=== PATIENT | male | born 1945 | race Caucasian/White ===

== ENCOUNTER 2016-07-21 14:48 | Emergency (ER) | payer MEDICARE, OTHER ==
[2016-07-21 15:02] VITALS: TEMP 97.2
--- NOTE | 2016-07-21 15:38 | ED.PDOC ---
History of Present Illness - General Chief Complaint: GI Problem Stated Complaint: n/v x3 days Time Seen by Provider: 07/21/16 15:31 Source: patient, RN notes reviewed, Vital Signs reviewed Exam Limitations: no limitations - History of Present Illness Initial Comments: Mr. Lopez Cruz 71 y/o male stated that he had an episode of nausea/ vomiting 2 weeks ago got better and 4 days ago had same episode with diarrhea for 2 days and better but his nausea vomiting persisted unable to take even fluids and been feeling weak.Has history of CAD/HTN. Timing/Duration: constant, intermittent, other - 4 days ago Severity: moderate Improving Factors: nothing Worsening Factors: eating Associated Symptoms: malaise Allergies/Adverse Reactions: Allergies NO KNOWN ALLERGY Allergy (Verified 07/21/16 15:01) Home Medications: Ambulatory Orders Aspirin [Baby Aspirin] 81 mg PO DAILY 09/17/14 Budesonide-Formoterol Fumarate [Symbicort 160-4.5 Mcg/Act] 1 puff INH BID Lisinopril 10 mg PO BID 09/17/14 Metoprolol Succinate [Toprol Xl] 25 mg PO BID 09/17/14 Omeprazole 20 mg PO BID 09/17/14 Atorvastatin Calcium [Lipitor] 20 mg PO DAILY 08/13/15 Isosorbide Mononitrate [Imdur] 30 mg PO DAILY 08/13/15 Meclizine HCl [Antivert] 25.5 mg PO TID PRN #15 tab 08/13/15 Meloxicam [Mobic] 7.5 mg PO DAILY #10 tab 08/13/15 Ondansetron Odt [Zofran ODT] 8 mg PO TID PRN #10 tab 07/21/16 Review of Systems - Review of Systems Constitutional: States: no symptoms reported EENTM: States: no symptoms reported Respiratory: States: no symptoms reported Cardiology: States: no symptoms reported Gastrointestinal/Abdominal: States: see HPI Genitourinary: States: no symptoms reported Musculoskeletal: States: no symptoms reported Skin: States: no symptoms reported Neurological: States: no symptoms reported Endocrine: States: no symptoms reported Hematologic/Lymphatic: States: no symptoms reported Past Medical History (General) - Patient Medical History Hx Stroke: No Hx of COPD: Yes Hx Cardiac Disorders: Yes Hx Congestive Heart Failure: No Hx Hypertension: Yes Hx Diabetes: No Hx Gastroesophageal Reflux: Yes Surgical History: coronary bypass surgery, other - hernia repair - Vaccination History Hx Tetanus, Diphtheria Vaccination: Yes Hx Influenza Vaccination: Yes - 2016 Hx Pneumococcal Vaccination: Yes - 2016 - Social History Hx Tobacco Use: Yes Hx Alcohol Use: No Hx Substance Use: No Hx Substance Use Treatment: No Hx Depression: No - Activities of Daily Living Patient Lives Alone: Yes - family Hospice Agency (if applicable):: None Grooming Ability: Independent Eating (Feeding) Ability: Independent Toileting Ability: Independent - Female History Patient is a Female of Child Bearing Age (10 -59 yrs old): No Patient : No Family Medical History - Family History Mother Family History: Unknown Living Status: Hx Family Asthma: No Hx Family Congestive Heart Failure: No Hx Family Hypertension: Yes - mom Hx Family Stroke: Yes - mom Hx Family Cancer: No Physical Exam - Physical Exam General Appearance: Alert, No apparent distress Eye Exam: bilateral normal Ears, Nose, Throat: hearing grossly normal, normal ENT inspection, normal pharynx Neck: non-tender, full range of motion, supple, normal inspection Respiratory: chest non-tender, lungs clear, normal breath sounds, no respiratory distress Cardiovascular/Chest: normal peripheral pulses, regular rate, rhythm, no edema, no gallop, no JVD, no murmur Peripheral Pulses: radial,right: 2+, radial,left: 2+ Gastrointestinal/Abdominal: normal bowel sounds, non tender, soft, no organomegaly, no pulsatile mass Back Exam: normal inspection, no CVA tenderness, no vertebral tenderness Extremity: normal range of motion, non-tender, normal inspection Neurologic: no motor/sensory deficits, alert, normal mood/affect, oriented x 3 Skin Exam: normal color, warm/dry Progress - Results/Orders Results/Orders: 07/21/16 15:47 URINALYSIS Stat Laboratory Results WBC 5.0 K/mm3 (4.8-10.8) 07/21/16 15:50 RBC 5.47 M/mm3 (4.70-6.10) 07/21/16 15:50 Hgb 15.3 gm/dL (14.0-18.0) 07/21/16 15:50 Hct 45.9 % (42.0-52.0) 07/21/16 15:50 MCV 84.0 fl (80.0-94.0) 07/21/16 15:50 MCH 28.1 pg (27.0-31.0) 07/21/16 15:50 MCHC 33.4 g/dL (33.0-37.0) 07/21/16 15:50 RDW 15.2 % (11.5-14.5) H 07/21/16 15:50 Plt Count 200 K/mm3 (130-400) 07/21/16 15:50 MPV 7.9 fl (7.40-10.4) 07/21/16 15:50 Absolute Neuts (auto) 2.90 K/uL (1.8-6.8) 07/21/16 15:50 Absolute Lymphs (auto) 1.00 K/uL (1.0-3.4) 07/21/16 15:50 Absolute Monos (auto) 1.00 K/uL (0.2-0.8) H 07/21/16 15:50 Absolute Eos (auto) 0.10 K/uL (0.0-0.4) 07/21/16 15:50 Absolute Basos (auto) 0.00 K/uL (0.0-0.1) 07/21/16 15:50 Neutrophils % 57.4 % (42.0-78.0) 07/21/16 15:50 Lymphocytes % 20.4 % (20.0-50.0) 07/21/16 15:50 Monocytes % 20.6 % (2.0-9.0) H 07/21/16 15:50 Eosinophils % 1.2 % (1.0-5.0) 07/21/16 15:50 Basophils % 0.4 % (0.0-2.0) 07/21/16 15:50 PT 13.4 SECONDS (9.4-12.5) H 07/21/16 15:50 INR 1.190 07/21/16 15:50 PTT (SP) 31.2 SECONDS (25.1-36.5) 07/21/16 15:50 Sodium 132 mmol/L (135-145) L 07/21/16 15:50 Potassium 3.8 mmol/L (3.6-5.0) 07/21/16 15:50 Chloride 100 mmol/L (101-111) L 07/21/16 15:50 Carbon Dioxide 23 mmol/L (21-31) 07/21/16 15:50 Anion Gap 12.8 (12-18) 07/21/16 15:50 BUN 19 mg/dL (7-18) H 07/21/16 15:50 Creatinine 1.09 mg/dL (0.6-1.3) 07/21/16 15:50 BUN/Creatinine Ratio 17.4 (10-20) 07/21/16 15:50 Random Glucose 101 mg/dL (70-105) 07/21/16 15:50 Serum Osmolality 266.9 mOsm/L (275-295) L 07/21/16 15:50 Calcium 9.0 mg/dL (8.4-10.2) 07/21/16 15:50 Magnesium 2.0 mg/dL (1.8-2.5) 07/21/16 15:50 Total Bilirubin 0.4 mg/dL (0.2-1.0) 07/21/16 15:50 Direct Bilirubin 0.1 mg/dL (0-0.2) 07/21/16 15:50 Indirect Bilirubin 0.3 mg/dL (0.2-0.8) 07/21/16 15:50 AST 44 IU/L (10-42) H 07/21/16 15:50 ALT 42 IU/L (10-60) 07/21/16 15:50 Alkaline Phosphatase 86 IU/L (42-121) 07/21/16 15:50 Creatine Kinase 122 IU/L (38-174) 07/21/16 15:50 CK-MB (CK-2) 1.9 ng/mL (0.0-4.4) 07/21/16 15:50 CK-MB (CK-2) % Not Reportable 07/21/16 15:50 Troponin I < 0.02 ng/mL (0.01-0.05) 07/21/16 15:50 Serum Total Protein 7.9 gm/dL (6.4-8.2) 07/21/16 15:50 Albumin 4.0 g/dl (3.2-5.5) 07/21/16 15:50 Globulin Cancelled 07/21/16 15:50 Albumin/Globulin Ratio Cancelled 07/21/16 15:50 Lipase 21 U/L (22-51) L 07/21/16 15:50 - EKG/XRAY/CT EKG: Sinus, nonspecific ST T wave Chg Comments: heart rate 90 Departure - Departure Clinical Impression: Nausea and vomiting in adult patient, Diarrhea Time of Disposition: 18:21 Disposition: Discharge to Home or Self Care Condition: Good Departure Forms: ED Discharge - Pt. Copy, Patient Portal Self Enrollment Instructions: Nausea and Vomiting-Adult Diet: bland diet Prescriptions: Ondansetron Odt [Zofran ODT] 8 mg PO TID PRN #10 tab PRN Reason: Nausea/Vomiting Home Medications: Ambulatory Orders Aspirin [Baby Aspirin] 81 mg PO DAILY 09/17/14 Budesonide-Formoterol Fumarate [Symbicort 160-4.5 Mcg/Act] 1 puff INH BID Lisinopril 10 mg PO BID 09/17/14 Metoprolol Succinate [Toprol Xl] 25 mg PO BID 09/17/14 Omeprazole 20 mg PO BID 09/17/14 Atorvastatin Calcium [Lipitor] 20 mg PO DAILY 08/13/15 Isosorbide Mononitrate [Imdur] 30 mg PO DAILY 08/13/15 Meclizine HCl [Antivert] 25.5 mg PO TID PRN #15 tab 08/13/15 Meloxicam [Mobic] 7.5 mg PO DAILY #10 tab 08/13/15 Ondansetron Odt [Zofran ODT] 8 mg PO TID PRN #10 tab 07/21/16 Additional Instructions: AVOID GREASY SPICY FOODS UNTIL BETTER; RETURN TO EMERGENCY ROOM NEEDED; FOLLOW UP WITH YOU MD IN AM IF NEEDED CALL FOR APPOINTMENT
[2016-07-21] MEDS ORDERED: SODIUM CHLORIDE 0.9% 1000ML 1,000 ML IVS ONE (15:47)
[2016-07-21] MEDS ORDERED: ONDANSETRON INJ 4 MG/2 ML VIAL IV ONE (15:48)
[2016-07-21 18:39] VITALS: BP 133/91; O2SAT 97
== END 2016-07-21 18:39 | disposition home or self-care (01) ==
LOC: ER 14:48
DX: R11.2 Nausea with vomiting, unspecified (principal); R19.7 Diarrhea, unspecified; I10 Essential (primary) hypertension; K21.9 Gastro-esophageal reflux disease without esophagitis; J44.9 Chronic obstructive pulmonary disease, unspecified; Z87.891 Personal history of nicotine dependence; Z95.1 Presence of aortocoronary bypass graft; Z79.82 Long term (current) use of aspirin; Z79.899 Other long term (current) drug therapy
CPT/HCPCS: 36415; 80048; 80076; 82550; 82553; 83690; 84484; 85025; 85610; 85730; 93005; J2405; J7030

== ENCOUNTER 2016-08-25 21:13 | Emergency (ER) | payer MEDICARE, OTHER ==
[2016-08-25 22:51] VITALS: O2SAT 94
--- NOTE | 2016-08-25 22:53 | RAD ---
EXAM: Chest,2 Views CLINICAL INDICATION: 71-year-old male with chest pain and shortness of breath. TECHNIQUE: Two-view, PA and lateral projections of the chest were obtained. COMPARISON: 02/24/2016. FINDINGS: Stable cardiac and mediastinal silhouette. Heart size is normal. Tortuous atherosclerotic thoracic aorta. Median sternotomy wires. Lungs are clear without focal opacity, pneumothorax or pleural effusions. The visualized bones are within normal limits. IMPRESSION: No acute cardiopulmonary abnormalities. Electronically signed by: Phyllis Michaels MD 08/25/2016 10:53 PM CDT
--- NOTE | 2016-08-25 23:02 | ED.PDOC ---
History of Present Illness - General Chief Complaint: Chest Pain/NM Stated Complaint: High blood pressure, Chest Pain this evening Time Seen by Provider: 08/25/16 22:02 Source: patient, RN notes reviewed, Vital Signs reviewed Exam Limitations: no limitations - History of Present Illness Initial Comments: Patient noticed this evening that his BP was elevated with systolic pressures of 190's. He then went to take the dog out and got SOB walking back into the house. + chest pain but this is chronic L lower, superficial pain that has been present for years. No change or new pain today. He did take an extra 1/2 tab of his BP medication. Currently he is back to his baseline. Timing/Duration: 1-3 hours Severity: mild Location: other - L lower chest - chronic with no acute change Activities at Onset: activity Prior Chest Pain/Cardiac Workup: cardiac cath, stress test, thallium scan, other - Triple bypass Worsening Factors: nothing Nitro Today/Relief: no nitro taken today Aspirin Treatment Today: 81 mg x 1 Associated Symptoms: shortness of breath Allergies/Adverse Reactions: Allergies NO KNOWN ALLERGY Allergy (Verified 07/21/16 15:01) Home Medications: Ambulatory Orders Aspirin [Baby Aspirin] 81 mg PO DAILY 09/17/14 Lisinopril 10 mg PO DAILY 09/17/14 Metoprolol Succinate [Toprol Xl] 25 mg PO BID 09/17/14 Omeprazole 40 mg PO BID 09/17/14 Atorvastatin Calcium [Lipitor] 20 mg PO DAILY 08/13/15 Isosorbide Mononitrate [Imdur] 30 mg PO DAILY 08/13/15 Review of Systems - Review of Systems Constitutional: States: no symptoms reported. Denies: chills, diaphoresis, malaise, weakness EENTM: States: no symptoms reported Respiratory: States: see HPI, short of breath. Denies: cough Cardiology: States: see HPI, chest pain - chronic. Denies: palpitations, syncope Gastrointestinal/Abdominal: States: no symptoms reported. Denies: nausea Musculoskeletal: States: no symptoms reported Skin: States: no symptoms reported Neurological: States: no symptoms reported. Denies: headache Endocrine: States: no symptoms reported Past Medical History (General) - Patient Medical History Hx Stroke: No Hx of COPD: Yes Hx Cardiac Disorders: Yes - CABG 2007 Hx Congestive Heart Failure: No Hx Hypertension: Yes Hx Diabetes: No Hx Gastroesophageal Reflux: Yes Hx Cancer: No Hx Hepatitis C: No - Vaccination History Hx Tetanus, Diphtheria Vaccination: No Hx Influenza Vaccination: Yes Hx Pneumococcal Vaccination: No - Social History Hx Tobacco Use: No - Stopped 6 months ago Hx Chewing Tobacco Use: No Hx Alcohol Use: No Hx Substance Use: No Hx Substance Use Treatment: No Hx Depression: No Feels Threatened In Home Enviroment: No Feels Threatened In a Relationship: No Hx Physical Abuse: No Hx Emotional Abuse: No Hx Suspected Abuse: No - Female History Patient : No Family Medical History - Family History Mother Family History: Unknown Living Status: Hx Family Asthma: No Hx Family Congestive Heart Failure: No Hx Family Hypertension: Yes - mom Hx Family Stroke: Yes - mom Hx Family Cancer: No Physical Exam - Physical Exam General Appearance: Alert, Comfortable, No apparent distress, Well Developed, Well Groomed, Well Hydrated, Well Nourished Neck: non-tender, full range of motion, supple, normal inspection Respiratory: lungs clear, normal breath sounds, no respiratory distress, no accessory muscle use, other - L lower, ant. chest is sensitive to touch Cardiovascular/Chest: normal peripheral pulses, regular rate, rhythm, no edema, no gallop, no JVD, no murmur Peripheral Pulses: posterior tibialis,right: 2+, posterior tibialis,left: 2+ Gastrointestinal/Abdominal: normal bowel sounds, non tender, soft, no organomegaly Extremity: normal range of motion, normal inspection, no pedal edema Neurologic: alert, normal mood/affect, oriented x 3 Skin Exam: normal color, warm/dry Progress - Progress Progress: 08/25/16 23:11 Patient is doing well. BP now 138/77. Suspect he had hypertensive urgency. No new chest pain, brief episode of SOB and now back to baseline. He would like to go home. - Results/Orders Results/Orders: Laboratory Tests 08/25/16 08/25/16 20:30 20:30 WBC 7.1 RBC 4.65 L Hgb 12.8 L Hct 39.3 L MCV 84.5 MCH 27.5 MCHC 32.7 L RDW 15.2 H Plt Count 195 MPV 7.8 Absolute Neuts (auto) 4.30 Absolute Lymphs (auto) 1.90 Absolute Monos (auto) 0.60 Absolute Eos (auto) 0.30 Absolute Basos (auto) 0.00 Neutrophils % 60.8 Lymphocytes % 26.8 Monocytes % 8.2 Eosinophils % 3.6 Basophils % 0.6 Sodium 138 Potassium 3.5 L Chloride 107 Carbon Dioxide 23 Anion Gap 11.5 L BUN 14 Creatinine 0.92 BUN/Creatinine Ratio 15.2 Random Glucose 131 H Serum Osmolality 278.0 Calcium 8.7 Total Bilirubin < 0.2 L AST 16 ALT 11 Alkaline Phosphatase 71 Creatine Kinase 70 CK-MB (CK-2) 1.5 CK-MB (CK-2) % Not Reportable Troponin I < 0.02 Serum Total Protein 6.9 Albumin 3.5 Globulin 3.4 Albumin/Globulin Ratio 1.0 L - EKG/XRAY/CT EKG: Sinus, no ST T wave changes Comments: LAD XRAY: chest - No acute findings per Radiology CT Ordered: No CT Interpretation Call Back: No Departure - Departure Clinical Impression: Hypertensive urgency Time of Disposition: 23:13 Disposition: Discharge to Home or Self Care Condition: Good Departure Forms: ED Discharge - Pt. Copy, Patient Portal Self Enrollment Instructions: High Blood Pressure Diet: resume usual diet Activity: increase activity as tolerated Home Medications: Ambulatory Orders Aspirin [Baby Aspirin] 81 mg PO DAILY 09/17/14 Lisinopril 10 mg PO DAILY 09/17/14 Metoprolol Succinate [Toprol Xl] 25 mg PO BID 09/17/14 Omeprazole 40 mg PO BID 09/17/14 Atorvastatin Calcium [Lipitor] 20 mg PO DAILY 08/13/15 Isosorbide Mononitrate [Imdur] 30 mg PO DAILY 08/13/15 Additional Instructions: Follow up with your PCP in 2-3 days.
[2016-08-25 23:29] VITALS: BP 126/56; TEMP 98.1
== END 2016-08-25 23:28 | disposition home or self-care (01) ==
LOC: ER 21:13
DX: I16.0 Hypertensive urgency (principal); J44.9 Chronic obstructive pulmonary disease, unspecified; K21.9 Gastro-esophageal reflux disease without esophagitis; Z79.82 Long term (current) use of aspirin; Z79.899 Other long term (current) drug therapy; Z95.1 Presence of aortocoronary bypass graft; Z87.891 Personal history of nicotine dependence

== ENCOUNTER → 2017-07-19 | Outpatient (CLI) | payer MEDICARE, OTHER ==
--- NOTE | 2017-07-19 16:28 | RAD ---
EXAM DESCRIPTION: Cervical Spine,3 Views CLINICAL HISTORY: 72 years Male, Segmental and somatic dysfunction of cervical region COMPARISON: None. FINDINGS: 4 views of the cervical spine show no vertebral body fracture or prevertebral soft tissue swelling. There is grade 1 retrolisthesis at C5-6 with fairly advanced degenerative disc disease at the same level. Less prominent disc space narrowing and facet joint degeneration are noted at additional levels in the cervical spine. The spinous processes are intact. Postoperative changes in the mediastinum or partially visualized. There are mural calcifications in the aortic arch. Soft tissue calcifications in both sides of the neck may be of vascular origin. IMPRESSION: Moderate to moderately advanced multilevel degenerative changes, worse at C5-6. Soft tissue calcifications in both sides of the neck, possibly vascular. Carotid artery ultrasound should be considered. Electronically signed by: Alexey Torres MD 07/19/2017 4:27 PM CDT
== END | disposition home or self-care (01) ==
LOC: RAD 13:33
PROVIDERS: ATTEND Chiropractor
DX: M99.01 Segmental and somatic dysfunction of cervical region (principal); M54.2 Cervicalgia

== ENCOUNTER → 2017-09-29 | Outpatient (CLI) | payer OTHER ==
--- NOTE | 2017-09-29 16:44 | RAD ---
EXAM DESCRIPTION: Chest,2 Views CLINICAL HISTORY: I10. ESSential (primary) hypertension. COMPARISON: 2 view chest x-ray 08/25/2016. CT chest and thorax today at this facility. TECHNIQUE: PA, lateral views. FINDINGS: Lungs: Bilateral hyperinflation with scarring versus atelectasis in the bases. No consolidation. . Density has increased in the right base since the prior study. Pleural spaces: No effusion or pneumothorax bilaterally. Heart: Normal size. Pulmonary Vascularity: Not increased. Mediastinum: No widening. Sternotomy wires and surgical clips. Aorta: Unremarkable. Bony Thorax/Spine: No acute bony thoracic abnormalities. Decreased bone density and decreased disc spaces. IMPRESSION: Possible emphysematous changes in the lungs with hyperinflation and bibasilar scarring or atelectasis. Densities have increased in the right base since the prior study. Please also compared to chest CT scan on this visit. Cardiopulmonary vascular structures are unremarkable. Electronically signed by: Franco Esquivel MD 09/29/2017 4:43 PM CDT
--- NOTE | 2017-09-29 17:12 | CT ---
EXAM DESCRIPTION: Chest w/o Contrast : Computed Tomography. CLINICAL HISTORY: I25.10. Atherosclerotic heart disease of [place] coronary artery without angina pectoris. COMPARISON: Chest x-ray on this visit. CT thorax 08/13/2007. TECHNIQUE: Spiral-axial scans at 5.0 mm intervals through the lungs and thorax without IV contrast. 2.5 mm lung algorithm axial reconstructions. Coronal and sagittal 2.0 Mm reconstructions. Total Exam DLP: 618.92 mGy-cm. This exam was performed according to our departmental dose-optimization program which includes automated exposure control, adjustment of the mA and/or kV according to patient size and/or use of iterative reconstruction technique; to reduce radiation dose to as low as reasonably achievable (ALARA). FINDINGS: Multiple small pleural plaques on the left hemithorax some which are calcified. These are seen medially and laterally and posteriorly. Smaller noncalcified plaques abutting the right hemithorax. 7.5 mm smooth soft tissue nodule in the subpleural posterior aspect of the superior segment of the left lower lobe (axial series 4 image 76) no calcification. 2 mm subpleural nodule in the left upper lobe laterally on image 59. Similar appearing nodule with similar size at the same level and lower posterior. 5 mm soft tissue nodule just above the left hemidiaphragm in the left lower lobe on axial image 53 and a slightly smaller nodule abutting the pleura on image 54. 3 mm and 6 mm subpleural soft tissue nodules superior segment right lower lobe seen on axial images 71 and 72. Less than 2 mm subpleural nodule right lower lobe laterally on axial image 27. 4 mm nodule abutting the major fissure and the horizontal fissure on the right on axial image 66. 5 mm soft tissue subpleural nodule lateral right upper lobe on axial image 34. Diffuse small emphysematous blebs in the lung parenchyma slightly more prevalent in the upper than the lower lung keith. Bibasilar scarring. Atherosclerotic calcifications in the aorta and great vessels. Heterogeneous enhancement of the thyroid gland. Coronary artery calcifications and possible stents. No large soft tissue masses in the axilla or mediastinum but evaluation limited due to lack of IV contrast. Large epicardial fat pad. Abdominal aortic atherosclerotic calcifications and calcifications of the branch vessels. Possible cyst in the inferior right kidney partially visualized with a cyst in the right medial upper liver. Adrenal glands and spleen normal size and density. Sub -diaphragmatic peritoneal peritoneal fluid. Partial visualization of a right renal cyst. IMPRESSION: 1. Bilateral pleural plaques with some partially calcified, more left than right. Correlate for history of asbestosis or mesothelioma. Emphysematous changes in the lungs bilaterally with hyperinflation. Multiple bilateral soft tissue nodules ranging up to 7.5 cm diameter. No acute infiltrate pleural effusion or pneumothorax. Recommend follow-up CT at 3-6 month interval. Following [facility] Best Practice recommendations and 2017 Fleischner Society guidelines for imaging follow-up of multiple pulmonary nodules. Please see below. 2. Atherosclerotic changes of the great vessels and coronary artery calcifications. Evaluation of soft tissue in the chest wall mediastinum hilum and upper abdomen limited due to lack of IV contrast. Probable cysts liver and right kidney. Follow-up if clinically indicated. * 2017 Fleischner Society Recommendations for Multiple Solid Lung Nodules Follow-Up base on size (average of long- and short-axis diameters). Use most suspicious nodule for followup. Nodule Size 6-8 mm Low-Risk Patient: CT at 3-[address] at 18-24 months Nodule Size 6-8 mm High-Risk Patient: CT at 3-6 months then at 18-24 months Electronically signed by: Franco Esquivel MD 09/29/2017 5:10 PM CDT
== END ==
LOC: CT 09:48
PROVIDERS: ATTEND Internal Medicine Interventional Cardiology
DX: I10 Essential (primary) hypertension (principal); I25.10 Atherosclerotic heart disease of native coronary artery without angina pectoris

== ENCOUNTER → 2017-11-03 | Outpatient (CLI) | payer OTHER ==
--- NOTE | 2017-11-03 15:42 | CT ---
EXAM DESCRIPTION: Abdomen/Pelvis w/o Contrast: Computed Tomography. CLINICAL HISTORY: DIVERTICULITIS, LEFT ABD PAIN. Hernia repair one year ago. Smokes tobacco. COMPARISON: CT scan of the chest 09/29/2017. CT scan abdomen and pelvis with April 19, 2014. TECHNIQUE: Spiral-axial scans 5.0 mm intervals through the abdomen and pelvis without IV contrast. Water-soluble Gastrografin oral contrast was given. Coronal and sagittal 2.0 mm reconstructions. Total Exam DLP: 1020.84 mGy-cm. This exam was performed according to our departmental CT dose-optimization program which includes automated exposure control, adjustment of the mA and/or kV according to patient size and/or use of iterative reconstruction technique; to reduce radiation dose to as low as reasonably achievable (ALARA). FINDINGS: Small Bowel: Oral contrast can be seen in the distal jejunum and ileum and terminal ileum. Small air-fluid levels but no significant distention. Terminal ileum is abutting the sigmoid colon at 3 points in the left lower quadrant and lower mid abdomen and upper pelvis. No evidence of fistulous connection. No fascial thickening or fatty stranding around the small bowel. Terminal Ileum/Cecum: Contains oral contrast and normal caliber. Appendix is faintly seen distal to the cecum and normal caliber cecum and appendix with no fatty stranding fluid or fascial thickening. Colon: Oral contrast in the cecum and ascending colon which is diffuse fecal material to the distal transverse colon. Oral contrast is seen in the distal transverse colon and splenic flexure descending colon and proximal rectosigmoid. Rectosigmoid is minimally redundant. Segment of descending colon where prior diverticulitis occurred in 2014 shows no evidence of complications on this scan. No definite fistulous tracts noted between the colon and small bowel to explain the appearance of oral contrast in the distal descending colon and rectosigmoid. No fascial thickening, fatty stranding, free air, or fluid collection. No prominent diverticula are noted. Lung bases and pleura: Thickened septa and Mosaic density in the lung parenchyma in bilateral bases with pleural calcification in the left base and pleural plaques bilaterally. Coronary artery calcifications.. Liver, stomach, spleen, and adrenal glands: 1.5 mm lobulated low-density nodule in the right hepatic lobe with Hounsfield density +2. Slightly smaller cyst subcapsular right hepatic lobe. Small sliding hiatal hernia. Stomach otherwise negative. Spleen and adrenal glands are unremarkable. Pancreas, Gallbladder, and Ducts: Calcified polyp versus gallstone only posterior wall of the superior gallbladder. Fatty pancreas. No duct dilation Kidneys and Ureters: 1.5 mm cyst posterior upper right kidney. Bilateral vascular calcifications. No hydronephrosis. Mesentery: No fatty stranding fascial thickening free air or ascites. Aorta: Moderate atherosclerotic calcification with significant atherosclerotic calcification of the major branch vessels minimal dilation distal abdominal aorta with bilateral ectasia from the origin of the bilateral common iliac arteries into the origins of the bilateral internal iliac arteries. Pelvic Organs: Minimally distended bladder with wall thickening. Prostate gland abutting the seminal vesicles and the base of the urinary bladder with central calcification. Dimensions in the axial plane are 4.9 x 3.3 cm. No fluid in the anterior peritoneal reflection. Spine and Bony Pelvis: Spondylosis at multiple levels of the lumbar spine especially L4-5. Grade 1 anterolisthesis at L5-S1 with significant foraminal narrowing and multiple levels of spondylosis in the lower thoracic spine. Abdominal Wall/Back Soft Tissues: Negative. 4w IMPRESSION: 1. No significantly enlarged diverticula are seen in the colon. Oral contrast extends from the mid small bowel into the ascending colon and from the distal transverse colon to the proximal sigmoid colon. No evidence of fistulous connection between segments of small bowel and colon that contain oral contrast. No fatty stranding, fascial thickening, free intraperitoneal air, or fluid collections where constipation proximal and mid colon. Segments of bowel approximate each other. No evidence of complications where diverticulitis occurred in the descending colon in 2014. 2. Cyst in the upper pole of the right kidney. Vascular calcifications in the kidney and diffuse vascular calcifications in the abdominal aorta and the proximal major branch vessels. Ectasia in the bilateral common iliac arteries extending into the bilateral internal iliac arteries. 3. Lung parenchymal disease in the bases again seen with pleural plaques in pleural calcifications, coronary artery calcification. Stable hepatic cysts. No significant progressive enlargement of the prostate gland compared to the prior study. Stable small sliding hiatal hernia. Stable spondylosis in the lumbar and included thoracic spine. Electronically signed by: Franco Esquivel MD 11/03/2017 3:40 PM CDT
== END ==
LOC: CT 13:41
PROVIDERS: ATTEND Physician Assistant
DX: R10.9 Unspecified abdominal pain (principal); N28.1 Cyst of kidney, acquired; K44.9 Diaphragmatic hernia without obstruction or gangrene; I70.0 Atherosclerosis of aorta; I70.1 Atherosclerosis of renal artery; I25.10 Atherosclerotic heart disease of native coronary artery without angina pectoris; Z87.19 Personal history of other diseases of the digestive system

== ENCOUNTER → 2018-01-04 | Outpatient (CLI) | payer OTHER ==
--- NOTE | 2018-01-04 14:22 | US ---
EXAM DESCRIPTION: Carotid Duplex: ULTRASOUND. CLINICAL HISTORY: OCCLUSION BILATERAL CAROTID ARTERIES COMPARISON: None. TECHNIQUE: Transcutaneous scanning utilizing doshi-scale and Doppler modes to evaluate the bilateral carotid systems and vertebral arteries. Percentage of diameter of stenosis or no stenosis recorded will be based upon NASCET criteria. FINDINGS: Peak systolic/end diastolic (CM-Sec) CCA Right 76/18 Left 63/26. ICA Right proximal 54/11, distal 80/17. Left proximal 34/11, mid 71/25. Vertebral Right 39/9 Left 40/19. ECA (PS Only) Right 110 left 279. ICA/CCA peak systolic ratio: Right 1.1 Left 1.1 ICA/CCA end diastolic ratio: Right 0.9 Left 1.0 Vertebral arteries: antegrade flow. Comments: Calcifications distal right CCA and proximal right ICA. Similar findings on the left. Spectral broadening bilateral proximal ICAs. 30% area stenosis proximal right ICA. 29% diameter stenosis. 57% area stenosis CCA bulb. 50% diameter stenosis. High-grade stenosis proximal left ECA. IMPRESSION: 1. Doppler evaluation of the bilateral internal carotid systems and vertebral arteries shows no hemodynamically significant stenoses. Area stenosis in the left common carotid bulb less than 60%. High-grade stenosis of the proximal left ECA. 2. Significant amount of plaque seen in the carotid arteries bilaterally. Bilateral vertebral arteries showed antegrade-cephalad flow. Electronically signed by: Franco Esquivel MD 01/04/2018 2:21 PM CDT
== END ==
LOC: US 10:00
PROVIDERS: ATTEND Internal Medicine Interventional Cardiology
DX: I65.23 Occlusion and stenosis of bilateral carotid arteries (principal)

== ENCOUNTER → 2018-05-18 | Outpatient (CLI) | payer OTHER ==
--- NOTE | 2018-05-18 13:43 | CT ---
EXAM DESCRIPTION: Chest w/o Contrast CLINICAL HISTORY: BRONCHIECTASIS COMPARISON: September 29, 2017 TECHNIQUE: Noncontrast transaxial CT images of the chest are obtained. This exam was performed according to our departmental dose-optimization program, which includes automated exposure control, adjustment of the mA and/or kV according to patient size and/or use of iterative reconstruction technique . FINDINGS: Post surgical changes from CABG are identified. Calcifications of the aortic valve are seen. Moderate atherosclerotic disease of the thoracic aorta is stable. No pathologically enlarged mediastinal, hilar, or axillary lymphadenopathy seen. No pleural or pericardial effusions are seen. Scattered focal areas of pleural plaque calcified and noncalcified are seen in the chest bilaterally similar in configuration to previous exam without aggressive features. Visualized upper abdomen shows fluid attenuation right lobe liver cyst measuring 1.7 cm. Partly exophytic fluid attenuation cyst of the upper pole right kidney is seen. Calcified gallstone in the lower gallbladder measuring 6 mm is seen. Small hiatal hernia. Lungs are mildly hyperinflated. Moderate centrilobular emphysematous changes to the lungs are seen. Mild bronchiectasis is seen primarily in the lower lobes. Minimal bronchial wall thickening. Multiple bilateral noncalcified pulmonary nodules are again seen stable in size and number compared to previous exam with largest measuring 7 mm greatest diameter in the medial left lower lobe. No new pulmonary nodules. Osseous structures show no aggressive bony lesions. Degenerative changes of the spine are seen. IMPRESSION: Stable bilateral pulmonary nodules. The largest measures 7 mm. Recommend follow-up CT imaging in 12-18 months from this exam. Moderate centrilobular emphysematous changes to lungs are stable. Calcified and noncalcified pleural plaque is again seen suggesting previous is best is exposure. No interval change. Mild bronchiectasis and bronchial wall thickening is again seen stable from previous exam suggesting chronic infectious or inflammatory etiology. Atherosclerotic disease. Cholelithiasis. 2017 Fleischner Society Recommendations for Multiple Solid Lung Nodules Follow-Up base on size (average of long- and short-axis diameters). Use most suspicious nodule for followup. Nodule Size <6 mm Low-Risk Patient: No routine follow-up Nodule Size <6 mm High-Risk Patient: Optional CT at 12 months Nodule Size 6-8 mm Low-Risk Patient: CT at 3-[address] at 18-24 months Nodule Size 6-8 mm High-Risk Patient: CT at 3-6 months then at 18-24 months Nodule Size (mm) >8 Low-Risk Patient: CT at 3-6 months, then consider CT at 18-24 months Nodule Size (mm) >8 High-Risk Patient: CT at 3-6 months, then at 18-24 months Electronically signed by: Hua Farmer MD 05/18/2018 1:41 PM [facility]
== END ==
LOC: CT 09:52
PROVIDERS: ATTEND Internal Medicine Critical Care Medicine
DX: J47.9 Bronchiectasis, uncomplicated (principal); R91.8 Other nonspecific abnormal finding of lung field; I70.90 Unspecified atherosclerosis; K80.20 Calculus of gallbladder without cholecystitis without obstruction

== ENCOUNTER 2018-11-10 09:12 | Emergency (ER) | payer OTHER, MEDICARE ==
[2018-11-10] MEDS ORDERED: ASPIRIN (CHEWABLE) 81 MG TAB PO ONE (09:39)
--- NOTE | 2018-11-10 09:40 | ED.PDOC ---
History of Present Illness - General Chief Complaint: Chest Pain/SC Stated Complaint: chest pain Time Seen by Provider: 11/10/18 09:20 Source: patient Exam Limitations: no limitations - History of Present Illness Initial Comments: Patient presents with left sided chest pain for two days. It is non-radiating, burning in nature, constant but intermittent in intensity, worse with movement and walking, better with rest, + previous episodes. Last stress test just over one year ago at the [place]. S/P CABG x 3 in 2018. Stopped smoking two months ago. No other complaints. Timing/Duration: other - two days Severity: mild Improving Factors: rest Worsening Factors: movement Allergies/Adverse Reactions: Allergies NO KNOWN ALLERGY Allergy (Verified 11/10/18 09:46) Home Medications: Ambulatory Orders Aspirin [Baby Aspirin] 81 mg PO DAILY 09/17/14 Lisinopril 10 mg PO DAILY 09/17/14 Metoprolol Succinate [Toprol Xl] 25 mg PO BID 09/17/14 Omeprazole 40 mg PO BID 09/17/14 Atorvastatin Calcium [Lipitor] 20 mg PO DAILY 08/13/15 Isosorbide Mononitrate [Imdur] 30 mg PO DAILY 08/13/15 Budesonide-Formoterol Fumarate [Symbicort] 2 puff INH DAILY 11/10/18 Review of Systems - Review of Systems Constitutional: States: no symptoms reported EENTM: States: no symptoms reported Respiratory: States: no symptoms reported Cardiology: States: see HPI Gastrointestinal/Abdominal: States: no symptoms reported Genitourinary: States: no symptoms reported Musculoskeletal: States: no symptoms reported Skin: States: no symptoms reported Neurological: States: no symptoms reported Endocrine: States: no symptoms reported Hematologic/Lymphatic: States: no symptoms reported Past Medical History (General) - Patient Medical History Hx Stroke: No Hx of COPD: Yes Hx Cardiac Disorders: Yes - CABG 2007 Hx Congestive Heart Failure: No Hx Hypertension: Yes Hx Diabetes: No Hx Gastroesophageal Reflux: Yes Hx Cancer: No Hx Hepatitis C: No Surgical History: coronary bypass surgery - Vaccination History Hx Tetanus, Diphtheria Vaccination: No Hx Influenza Vaccination: Yes Hx Pneumococcal Vaccination: No - Social History Hx Tobacco Use: No - Stopped 6 months ago Hx Chewing Tobacco Use: No Hx Alcohol Use: No Hx Substance Use: No Hx Substance Use Treatment: No Hx Depression: No Hx Physical Abuse: No Hx Emotional Abuse: No Hx Suspected Abuse: No - Female History Patient : No Family Medical History - Family History Mother Family History: Unknown Living Status: Hx Family Asthma: No Hx Family Congestive Heart Failure: No Hx Family Hypertension: Yes - mom Hx Family Stroke: Yes - mom Hx Family Cancer: No Physical Exam - Physical Exam General Appearance: Alert Eye Exam: bilateral normal Ears, Nose, Throat: normal ENT inspection Neck: non-tender, full range of motion, supple Respiratory: lungs clear, normal breath sounds Cardiovascular/Chest: normal peripheral pulses, regular rate, rhythm, no edema Gastrointestinal/Abdominal: normal bowel sounds, non tender, soft Back Exam: normal inspection, no CVA tenderness Extremity: normal range of motion, non-tender, normal inspection, no pedal edema Neurologic: no motor/sensory deficits, alert, normal mood/affect, oriented x 3 Skin Exam: normal color Lymphatic: no adenopathy Progress - Progress Progress: 11/10/18 13:17 Laboratory Tests 11/10/18 11/10/18 11/10/18 09:25 09:25 09:25 WBC 8.6 RBC 4.93 Hgb 13.9 L Hct 41.3 L MCV 83.8 MCH 28.3 MCHC 33.8 RDW 15.8 H Plt Count 220 MPV 7.4 Absolute Neuts (auto) 6.20 Absolute Lymphs (auto) 1.50 Absolute Monos (auto) 0.70 Absolute Eos (auto) 0.10 Absolute Basos (auto) 0.10 Neutrophils % 72.1 Lymphocytes % 17.5 L Monocytes % 7.9 Eosinophils % 1.6 Basophils % 0.9 PT 10.3 INR 1.03 PTT (SP) 25.9 D-Dimer, Quantitative Sodium 141 Potassium 4.4 Chloride 107 Carbon Dioxide 24 Anion Gap 14.4 BUN 16 Creatinine 0.77 BUN/Creatinine Ratio 20.8 H Random Glucose 113 H Serum Osmolality 283.3 Calcium 9.1 Total Bilirubin 0.7 AST 18 ALT 11 Alkaline Phosphatase 81 Creatine Kinase 70 CK-MB (CK-2) 1.6 CK-MB (CK-2) % Not Reportable Troponin I < 0.02 B-Natriuretic Peptide Serum Total Protein 7.5 Albumin 4.1 Globulin 3.4 Albumin/Globulin Ratio 1.2 11/10/18 11/10/18 11/10/18 09:25 09:25 12:21 WBC RBC Hgb Hct MCV MCH MCHC RDW Plt Count MPV Absolute Neuts (auto) Absolute Lymphs (auto) Absolute Monos (auto) Absolute Eos (auto) Absolute Basos (auto) Neutrophils % Lymphocytes % Monocytes % Eosinophils % Basophils % PT INR PTT (SP) D-Dimer, Quantitative 1.35 H* Sodium Potassium Chloride Carbon Dioxide Anion Gap BUN Creatinine BUN/Creatinine Ratio Random Glucose Serum Osmolality Calcium Total Bilirubin AST ALT Alkaline Phosphatase Creatine Kinase CK-MB (CK-2) CK-MB (CK-2) % Troponin I < 0.02 B-Natriuretic Peptide 70.4 Serum Total Protein Albumin Globulin Albumin/Globulin Ratio EKG showed occasional PVCs. Troponin x two negative. d-dimer elevated, CTA chest was negative for PE. I spoke with Dr. Schrader (cardiology) and it was agreed that this is probably chronic stable angina or possibly musculoskeletal. Patient was advised to follow up with cardiology for likely stress testing. The patient said he planned on calling for an appointment with Dr. Han as soon as he gets home. Care instructions given. E.R. warnings given. Questions were elicited and answered. Patient voiced understanding and agreement with the plan. Departure - Departure Clinical Impression: Chronic stable angina Disposition: Discharge to Home or Self Care Condition: Good Departure Forms: ED Discharge - Pt. Copy, Patient Portal Self Enrollment Instructions: DI for Chest Pain Diet: other - as per your regular doctor Activity: other - as per your patient care coordinator Home Medications: Ambulatory Orders Aspirin [Baby Aspirin] 81 mg PO DAILY 09/17/14 Lisinopril 10 mg PO DAILY 09/17/14 Metoprolol Succinate [Toprol Xl] 25 mg PO BID 09/17/14 Omeprazole 40 mg PO BID 09/17/14 Atorvastatin Calcium [Lipitor] 20 mg PO DAILY 08/13/15 Isosorbide Mononitrate [Imdur] 30 mg PO DAILY 08/13/15 Budesonide-Formoterol Fumarate [Symbicort] 2 puff INH DAILY 11/10/18 Additional Instructions: Get an appointment with Dr. Han or your regular patient care coordinator as soon as possible for further testing. Return to the E.R. for worsening chest pain, light-headedness, cold sweats, nausea, or shortness of breath.
--- NOTE | 2018-11-10 10:03 | RAD ---
EXAM DESCRIPTION: Chest,1 View CLINICAL HISTORY: chest pain FINDINGS/ IMPRESSION: Comparison 09/29/2017 Prior cardiac surgery. Normal heart size. Tortuous atherosclerotic aorta. No pulmonary edema, infiltrates or effusions. No pneumothorax. No acute bony abnormality Electronically signed by: Nikita Ruiz MD 11/10/2018 10:02 AM CDT
--- NOTE | 2018-11-10 11:32 | CT ---
CT CHEST ANGIOGRAPHY WITH IV CONTRAST HISTORY: 73 years Male chest pain COMPARISON: May 18, 2018. CT abdomen and pelvis dated June 13, 2007 TECHNIQUE: Helical tomographic images of the chest were obtained after the intravenous administration of 100 cc of [id number]-[id number] utilizing an angiogram protocol. 3-D MIP reconstructions were created. Coronal and sagittal reformatted images were also provided. This exam was performed according to our departmental dose-optimization program, which includes automated exposure control, adjustment of the mA and/or kV according to patient size and/or use of iterative reconstruction technique. FINDINGS: Diagnostic quality: Adequate. Pulmonary embolism: None. Pulmonary arteries: Normal caliber and enhancement. Lungs/airways/pleura: Severe radiologic changes of emphysema again demonstrated. Subpleural scarring in mild bronchiectasis again seen in the lower lobes. Multiple noncalcified pulmonary nodules again noted, the largest measuring 7 mm in the left lower lobe (2/70), unchanged back to June 13, 2007. No new or progressive pulmonary nodule is identified. Numerous calcified pleural plaques are again seen, most commonly seen in the setting of prior asbestos exposure. Heart/pericardium: Heart size is normal. No significant pericardial fluid detected. Mediastinum/meet: No mediastinal or hilar mass or lymphadenopathy detected. Small hiatal hernia is present. Post CABG changes again demonstrated. Systemic vasculature: Severe scattered atherosclerotic changes again noted. Regional surrounding soft tissues: No acute process detected. Bones: No acute process detected. Included abdomen: Well-defined fluid attenuation lesions are again demonstrated within the imaged liver, most suggestive of simple cysts and simple appearing right renal cyst again noted, unchanged. Calcified gallstone again noted, unchanged. IMPRESSION: No evidence of a pulmonary embolus. Unchanged appearance of the chest by CT, with redemonstrated emphysema with bibasilar scarring, pleural plaques suggesting prior asbestos exposure, and small noncalcified pulmonary nodules. Left lower lung nodule again measures 7 mm in diameter and appears grossly unchanged dating back to June 13, 2007. Cholelithiasis. Electronically signed by: Enrique Don MD 11/10/2018 11:30 AM CDT
[2018-11-10 13:37] VITALS: BP 120/74; TEMP 96.4; O2SAT 96
== END 2018-11-10 13:28 | disposition home or self-care (01) ==
LOC: ER 09:12
DX: I20.9 Angina pectoris, unspecified (principal); I49.3 Ventricular premature depolarization; J44.9 Chronic obstructive pulmonary disease, unspecified; I10 Essential (primary) hypertension; K21.9 Gastro-esophageal reflux disease without esophagitis; Z95.1 Presence of aortocoronary bypass graft; Z87.891 Personal history of nicotine dependence; Z79.82 Long term (current) use of aspirin; Z79.899 Other long term (current) drug therapy

== ENCOUNTER 2018-12-10 20:52 | Emergency (ER) | payer OTHER, MEDICARE ==
[2018-12-10 21:10] VITALS: O2SAT 95
[2018-12-10 22:53] VITALS: BP 142/78; TEMP 97.1
== END 2018-12-10 22:50 | disposition home or self-care (01) ==
LOC: ER 20:52
DX: R07.9 Chest pain, unspecified (principal); I45.10 Unspecified right bundle-branch block; R06.02 Shortness of breath; J44.9 Chronic obstructive pulmonary disease, unspecified; I10 Essential (primary) hypertension; K21.9 Gastro-esophageal reflux disease without esophagitis; I51.9 Heart disease, unspecified; Z95.1 Presence of aortocoronary bypass graft; Z87.891 Personal history of nicotine dependence; Z79.82 Long term (current) use of aspirin; Z79.899 Other long term (current) drug therapy

== ENCOUNTER 2019-02-22 10:57 | Emergency (ER) | payer OTHER, MEDICARE ==
--- NOTE | 2019-02-22 11:13 | ED.PDOC ---
History of Present Illness - General Chief Complaint: Chest Pain/WI Stated Complaint: L chest wall discomfort Time Seen by Provider: 02/22/19 11:11 Source: patient Exam Limitations: no limitations - History of Present Illness Initial Comments: 73 yo M with hx of CAD with hx of CABG who presents for L sided burning CP, constant, no radiation, onset three days ago. Denies associated f/c, cough, congestion, diaphoresis, n/v, edema. Hx of sx chronically since CABG, has been told it is from nerve damage from the surgery, heating pads help, however today the pain is worse than normal. States he is concerned it is his CAD worsening and had to cancel his appointment for a stress test and echo last week because the [place] messed up his referral. 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 Allergies/Adverse Reactions: Allergies NO KNOWN ALLERGY Allergy (Verified 02/22/19 11:19) Home Medications: Ambulatory Orders Aspirin [Baby Aspirin] 81 mg PO DAILY 09/17/14 Lisinopril 10 mg PO DAILY 09/17/14 Metoprolol Succinate [Toprol Xl] 25 mg PO BID 09/17/14 Omeprazole 40 mg PO BID 09/17/14 Atorvastatin Calcium [Lipitor] 20 mg PO DAILY 08/13/15 Isosorbide Mononitrate [Imdur] 30 mg PO DAILY 08/13/15 Budesonide-Formoterol Fumarate [Symbicort] 2 puff INH DAILY 11/10/18 Review of Systems - Review of Systems Constitutional: Denies: chills, fever EENTM: Denies: nose congestion, throat pain Respiratory: Denies: cough, orthopnea, short of breath, stridor, wheezing Cardiology: States: chest pain. Denies: edema, palpitations, syncope Gastrointestinal/Abdominal: Denies: abdominal pain, constipation, diarrhea, nausea, vomiting Genitourinary: Denies: dysuria, frequency, hematuria Musculoskeletal: Denies: back pain, neck pain Skin: Denies: change in color, lesions, rash Neurological: Denies: headache, numbness, weakness Endocrine: Denies: increased thirst, increased urine Past Medical History (General) - Patient Medical History Hx Stroke: No Hx of COPD: Yes Hx Cardiac Disorders: Yes - CABG 2007 Hx Congestive Heart Failure: No Hx Hypertension: Yes Hx Diabetes: No Hx Gastroesophageal Reflux: Yes Hx Cancer: No Hx Hepatitis C: No - Vaccination History Hx Tetanus, Diphtheria Vaccination: No Hx Influenza Vaccination: Yes Hx Pneumococcal Vaccination: No - Social History Hx Tobacco Use: No - Stopped 6 months ago Hx Chewing Tobacco Use: No Hx Alcohol Use: No Hx Substance Use: No Hx Substance Use Treatment: No Hx Depression: No Hx Physical Abuse: No Hx Emotional Abuse: No Hx Suspected Abuse: No - Female History Patient : No Family Medical History - Family History Mother Family History: Unknown Living Status: Hx Family Asthma: No Hx Family Congestive Heart Failure: No Hx Family Hypertension: Yes - mom Hx Family Stroke: Yes - mom Hx Family Cancer: No Physical Exam - Physical Exam General Appearance: Alert, Comfortable, No apparent distress, Well Developed, Well Nourished Eyes, Ears, Nose, Throat Exam: normal ENT inspection Neck: non-tender, full range of motion, supple, normal inspection Respiratory: chest non-tender, lungs clear, normal breath sounds, no respiratory distress, no accessory muscle use Cardiovascular/Chest: normal peripheral pulses, regular rate, rhythm, no edema, no gallop, no JVD, no murmur Peripheral Pulses: radial,right: 2+, radial,left: 2+ Gastrointestinal/Abdominal: non tender, soft, no organomegaly, no pulsatile mass Extremity: normal range of motion, non-tender, normal inspection, no pedal edema, no calf tenderness Neurologic: no motor/sensory deficits, alert, normal mood/affect, oriented x 3 Skin Exam: normal color, warm/dry Progress - Progress Progress: 02/22/19 12:45 Discussed with pt results and need for admission, HEART score of 4, [facility]. 02/22/19 12:57 [facility] and [facility] unable to accept pt for transfer. 02/22/19 13:01 Discussed with pt, he prefers to be transferred to [place], his medical home where his tin container straightener is located. 02/22/19 13:19 Discussed with [place] ED physician, accepts pt for transfer. Jacklyn Holloway MD Emergency Medicine Physician Billing Number [id number] - Results/Orders Results/Orders: Laboratory Results - last 24 hr 02/22/19 02/22/19 02/22/19 11:20 11:20 11:20 WBC 7.3 RBC 4.96 Hgb 13.8 L Hct 41.3 L MCV 83.4 MCH 27.9 MCHC 33.4 RDW 15.0 H Plt Count 206 MPV 7.6 Absolute Neuts (auto) 4.80 Absolute Lymphs (auto) 1.60 Absolute Monos (auto) 0.70 Absolute Eos (auto) 0.20 Absolute Basos (auto) 0.00 Neutrophils % 65.3 Lymphocytes % 21.8 Monocytes % 9.7 H Eosinophils % 2.7 Basophils % 0.5 Sodium 142 Potassium 4.2 Chloride 106 Carbon Dioxide 26 Anion Gap 14.2 BUN 12 Creatinine 0.81 BUN/Creatinine Ratio 14.8 Random Glucose 93 Serum Osmolality 282.6 Calcium 9.1 Total Bilirubin 0.5 AST 16 ALT 16 Alkaline Phosphatase 83 Troponin I < 0.02 Serum Total Protein 7.3 Albumin 3.9 Globulin 3.4 Albumin/Globulin Ratio 1.1 CXR: no acute process - EKG/XRAY/CT EKG: Sinus Comments: L axis Departure - Departure Clinical Impression: Chest pain Qualifiers: Chest pain type: unspecified Qualified Code(s): R07.9 - Chest pain, unspecified Time of Disposition: 13:30 Disposition: Transfer to Hospital Condition: Fair Home Medications: Ambulatory Orders Aspirin [Baby Aspirin] 81 mg PO DAILY 09/17/14 Lisinopril 10 mg PO DAILY 09/17/14 Metoprolol Succinate [Toprol Xl] 25 mg PO BID 09/17/14 Omeprazole 40 mg PO BID 09/17/14 Atorvastatin Calcium [Lipitor] 20 mg PO DAILY 08/13/15 Isosorbide Mononitrate [Imdur] 30 mg PO DAILY 08/13/15 Budesonide-Formoterol Fumarate [Symbicort] 2 puff INH DAILY 11/10/18
--- NOTE | 2019-02-22 11:56 | RAD ---
EXAM DESCRIPTION: Chest,2 Views x-ray CLINICAL HISTORY: chest pain COMPARISON: Previous study December 10, 2018 TECHNIQUE: PA/lateral FINDINGS: Sternotomy wires are present. Heart size is normal with normal pulmonary vascularity. No pleural effusion or pneumothorax. Lungs are clear with no consolidating infiltrate. Lateral view shows intact sternum and T-spine. IMPRESSION: No acute process is identified in the chest. Electronically signed by: John Silverio MD 02/22/2019 11:54 AM [facility]
[2019-02-22 13:57] VITALS: BP 146/89; TEMP 97; O2SAT 97
== END 2019-02-22 13:55 | disposition short-term general hospital (02) ==
LOC: ER 10:57
DX: R07.9 Chest pain, unspecified (principal); I25.10 Atherosclerotic heart disease of native coronary artery without angina pectoris; J44.9 Chronic obstructive pulmonary disease, unspecified; I10 Essential (primary) hypertension; K21.9 Gastro-esophageal reflux disease without esophagitis; Z95.1 Presence of aortocoronary bypass graft; Z87.891 Personal history of nicotine dependence; Z79.82 Long term (current) use of aspirin; Z79.899 Other long term (current) drug therapy

== ENCOUNTER 2020-04-01 14:28 | Emergency (ER) | payer MEDICARE, OTHER ==
[2020-04-01] MEDS ORDERED: SODIUM CHLORIDE 0.9% (FLUSH) 10 ML SYG IV PRN (14:44)
--- NOTE | 2020-04-01 14:46 | ED.PDOC ---
History of Present Illness - General Chief Complaint: Cardiovascular Problem Stated Complaint: palpitations Time Seen by Provider: 04/01/20 14:44 Source: patient - History of Present Illness Initial Comments: 74-year-old male with past medical history of hypertension, CAD status post CABG (2007), PVD status post right femoral stents (03/2020), history of A. constantino who presents with chief complaint of palpitations. Patient reports 3 days ago he had right femoral artery stents placed in [place] by Dr. Kowalski. He reports he has been doing well since his procedure. Today he was ambulating around [facility] and began having some discomfort in the right leg from all of the walking so he decided to go home. Whenever he got home and lied down he began having intermittent brief episodes of sensation of pounding heartbeat in the left side of his chest. He reports sensation of 1-2 strong beats in the left side of the chest without radiation which were occurring every 15 to 20 seconds. Patient reports symptoms began to ease after 20 to 30 minutes and have been totally resolved without any medications after about 1 hour shortly before ED arrival. He did not notice any worsening with exertion or improvement with rest. He called his carpenter helper maintenance Dr. Han who recommended he come to the ED for evaluation and an EKG. Denies any dyspnea, chest pain, cough, fevers, chills, abdominal pain, nausea/vomiting, leg swelling. He reports slightly decreased appetite and PO intake for past 3 days since his surgery. Allergies/Adverse Reactions: Allergies NO KNOWN ALLERGY Allergy (Verified 04/01/20 14:42) Home Medications: Ambulatory Orders Metoprolol Succinate [Toprol Xl] 25 mg PO BID 09/17/14 Omeprazole 40 mg PO BID 09/17/14 Atorvastatin Calcium [Lipitor] 20 mg PO DAILY 08/13/15 Budesonide-Formoterol Fumarate [Symbicort] 2 puff INH DAILY 11/10/18 Apixaban [Eliquis] 5 mg PO 04/01/20 Review of Systems - Review of Systems Review of Systems: 04/01/20 15:39 as per HPI All other Systems: Reviewed and Negative Past Medical History (General) - Patient Medical History Hx Stroke: No Hx of COPD: Yes Hx Cardiac Disorders: Yes - CABG 2007 Hx Congestive Heart Failure: No Hx Hypertension: Yes Hx Diabetes: No Hx Gastroesophageal Reflux: Yes Hx Cancer: No Hx Hepatitis C: No Hx MRSA: No Surgical History: coronary bypass surgery - Vaccination History Hx Tetanus, Diphtheria Vaccination: No Hx Influenza Vaccination: No Hx Pneumococcal Vaccination: No Immunizations Up to Date: No - Social History Hx Tobacco Use: No - Stopped last wednesday Hx Chewing Tobacco Use: No Hx Alcohol Use: Yes - hx of ETOH 24yr ago Hx Substance Use: No Hx Substance Use Treatment: No Hx Depression: No Hx Physical Abuse: No Hx Emotional Abuse: No Hx Suspected Abuse: No - Female History Patient : No Family Medical History - Family History Mother Family History: Unknown Living Status: Hx Family Asthma: No Hx Family Congestive Heart Failure: No Hx Family Hypertension: Yes - mom Hx Family Stroke: Yes - mom Hx Family Cancer: No Physical Exam - Physical Exam General Appearance: Alert, Comfortable, No apparent distress Eye Exam: bilateral normal Ears, Nose, Throat: hearing grossly normal, normal ENT inspection, normal pharynx Neck: non-tender, full range of motion, supple, normal inspection Respiratory: lungs clear, normal breath sounds, no respiratory distress, no accessory muscle use, other - moderate ttp left chest wall Cardiovascular/Chest: normal peripheral pulses, no edema, no gallop, no JVD, no murmur, tachycardia Peripheral Pulses: radial,right: 2+, radial,left: 2+ Gastrointestinal/Abdominal: non tender, soft Back Exam: normal inspection Extremity: normal range of motion, non-tender, normal inspection, no pedal edema, no calf tenderness 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 -Consider arrhythmia, A. fib, dehydration, electrolyte derangement, thyroid dysfunction, UTI, other infection, PE, ACS, other -Obtain stat cardiac work-up, blood work, rapid Covid and flu testing, UA, TSH, magnesium -1 L normal saline bolus 04/01/20 17:35 -Patient has remained stable. No further episodes of palpitations or chest discomfort. His cardiac work-up was unremarkable. He did have an elevated D- dimer of 3500 which I suspect is from his recent vascular procedure and bruising at the catheter site. However we did perform CTA chest which revealed no evidence of PE. 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 -I suspect that he possibly had brief arrhythmia or A. fib earlier which is now resolved. Or this could be anxiety induced. No emergent etiology appears present at this time. Discussed all findings with patient. He reports he will follow-up later this week with Dr. Han. Also follow-up closely with his vascular surgeon as scheduled. -Discharged home in good condition, return warnings discussed at length. Vahid Hollis MD Billing #[id number] 04/01/20 14:40 MAGNESIUM Stat TSH [THYROID STIMULATING HORMONE] Stat 04/01/20 14:44 Sodium Chloride 0.9% (Flush) [Saline Flush Syringe] 10 ml IV PRN PRN 04/01/20 14:45 EKG STAT 04/02/20 09:00 Pulse Ox Daily Laboratory Results - last 24 hr 04/01/20 04/01/20 04/01/20 14:40 14:40 14:40 WBC 9.4 RBC 4.58 L Hgb 13.1 L Hct 38.5 L MCV 84.1 MCH 28.6 MCHC 34.0 RDW 14.6 H Plt Count 211 MPV 7.6 Absolute Neuts (auto) 7.00 H Absolute Lymphs (auto) 1.20 Absolute Monos (auto) 1.00 H Absolute Eos (auto) 0.10 Absolute Basos (auto) 0.00 Neutrophils % 75.0 Lymphocytes % 12.3 L Monocytes % 11.0 H Eosinophils % 1.4 Basophils % 0.3 D-Dimer, Quantitative 3500.0 H* Sodium 137 Potassium 4.1 Chloride 100 L Carbon Dioxide 24 Anion Gap 17.1 BUN 18 Creatinine 0.99 BUN/Creatinine Ratio 18.2 Random Glucose 131 H Serum Osmolality 277.5 Lactic Acid Calcium 8.7 Magnesium Total Bilirubin 0.9 AST < 6 L ALT 15 Alkaline Phosphatase 72 Troponin I B-Natriuretic Peptide 63.7 Serum Total Protein 7.7 Albumin 3.8 Globulin 3.9 H Albumin/Globulin Ratio 1.0 L Urine Color Urine Appearance Urine pH Ur Specific [place] Urine Protein Urine Glucose (UA) Urine Ketones Urine Blood Urine Nitrite Urine Bilirubin Urine Urobilinogen Ur Leukocyte Esterase Urine RBC Urine WBC Ur Epithelial Cells Urine Bacteria 04/01/20 04/01/20 04/01/20 14:40 14:40 14:40 WBC RBC Hgb Hct MCV MCH MCHC RDW Plt Count MPV Absolute Neuts (auto) Absolute Lymphs (auto) Absolute Monos (auto) Absolute Eos (auto) Absolute Basos (auto) Neutrophils % Lymphocytes % Monocytes % Eosinophils % Basophils % D-Dimer, Quantitative Sodium Potassium Chloride Carbon Dioxide Anion Gap BUN Creatinine BUN/Creatinine Ratio Random Glucose Serum Osmolality Lactic Acid 1.2 Calcium Magnesium 2.0 Total Bilirubin AST ALT Alkaline Phosphatase Troponin I < 0.02 B-Natriuretic Peptide Serum Total Protein Albumin Globulin Albumin/Globulin Ratio Urine Color Urine Appearance Urine pH Ur Specific [place] Urine Protein Urine Glucose (UA) Urine Ketones Urine Blood Urine Nitrite Urine Bilirubin Urine Urobilinogen Ur Leukocyte Esterase Urine RBC Urine WBC Ur Epithelial Cells Urine Bacteria 04/01/20 15:00 WBC RBC Hgb Hct MCV MCH MCHC RDW Plt Count MPV Absolute Neuts (auto) Absolute Lymphs (auto) Absolute Monos (auto) Absolute Eos (auto) Absolute Basos (auto) Neutrophils % Lymphocytes % Monocytes % Eosinophils % Basophils % D-Dimer, Quantitative Sodium Potassium Chloride Carbon Dioxide Anion Gap BUN Creatinine BUN/Creatinine Ratio Random Glucose Serum Osmolality Lactic Acid Calcium Magnesium Total Bilirubin AST ALT Alkaline Phosphatase Troponin I B-Natriuretic Peptide Serum Total Protein Albumin Globulin Albumin/Globulin Ratio Urine Color Yellow Urine Appearance Clear Urine pH 5.5 Ur Specific [place] 1.020 Urine Protein Trace Urine Glucose (UA) Negative Urine Ketones Negative Urine Blood Negative Urine Nitrite Negative Urine Bilirubin Negative Urine Urobilinogen 2.0 H Ur Leukocyte Esterase Negative Urine RBC 0-1 Urine WBC 0-1 Ur Epithelial Cells 0-1 Urine Bacteria 0 - EKG/XRAY/CT EKG: Sinus, Tachy - Sinus tachycardia, heart rate 120, no ST elevations or Q waves noted, nonspecific T wave inversions noted in aVL, left axis deviation noted, intervals normal, compared to 02/22/2019 EKG sinus tachycardia and T wave inversions appear new. Departure - Departure Clinical Impression: Palpitations Time of Disposition: 17:38 Disposition: Discharge to Home or Self Care Condition: Good Departure Forms: ED Discharge - Pt. Copy, Patient Portal Self Enrollment Instructions: DI for Chest Pain, Palpitations (DC) Diet: resume usual diet Activity: increase activity as tolerated Home Medications: Ambulatory Orders Metoprolol Succinate [Toprol Xl] 25 mg PO BID 09/17/14 Omeprazole 40 mg PO BID 09/17/14 Atorvastatin Calcium [Lipitor] 20 mg PO DAILY 08/13/15 Budesonide-Formoterol Fumarate [Symbicort] 2 puff INH DAILY 11/10/18 Apixaban [Eliquis] 5 mg PO 04/01/20 Additional Instructions: Remain well-hydrated and advance her diet and activity level as tolerated per instruction from your vascular surgeon. Return to the ED if you develop any worsening of symptoms or any new/concerning symptoms as discussed such as chest pain, shortness of breath, etc. Follow-up closely with your vascular surgeon and carpenter helper maintenance as recommended. Also follow-up with your primary care physician in the next 1 to 2 weeks or sooner as needed.
--- NOTE | 2020-04-01 15:12 | RAD ---
EXAM DESCRIPTION: Chest,1 View CLINICAL HISTORY: palpitations COMPARISON: 22 February 2019 TECHNIQUE: AP portable chest FINDINGS: The patient is poststernotomy. Parenchymal scarring is observed at the left lung base. The lungs are free of acute infiltrate. No pleural fluid is seen. IMPRESSION: See no acute cardiopulmonary pathology or significant interval change. Electronically signed by: Juanjo Castellon MD 04/01/2020 3:10 PM MEDICAL BILLER/CODER
[2020-04-01] MEDS ORDERED: SODIUM CHLORIDE 0.9% 1000ML 1,000 ML IVS ONE (15:23)
--- NOTE | 2020-04-01 16:17 | CT ---
EXAM DESCRIPTION: CTA Chest CLINICAL HISTORY: chest pain, tachycardia, elevated d dimer COMPARISON: November 10, 2018 TECHNIQUE: Postcontrast CT images of the chest are obtained using pulmonary embolism imaging protocol. Three-D MIP reconstructed images of the arterial vasculature are obtained. Coronal and sagittal reconstructed images of the also provided. This exam was performed according to our departmental dose-optimization program, which includes automated exposure control, adjustment of the mA and/or kV according to patient size and/or use of iterative reconstruction technique . FINDINGS: Diagnostic quality: Adequate. Pulmonary embolism: None. Pulmonary arteries: Normal caliber and enhancement. Lungs/airways/pleura: Severe radiologic changes of emphysema again demonstrated. Subpleural scarring in mild bronchiectasis again seen in the lower lobes. Multiple noncalcified pulmonary nodules again noted, the largest measuring 7 mm in the left lower lobe (149/5), unchanged back to June 13, 2007. No new or progressive pulmonary nodule is identified. Numerous calcified pleural plaques are again seen, most commonly seen in the setting of prior asbestos exposure. Heart/pericardium: Heart size is normal. No significant pericardial fluid detected. Mediastinum/meet: No mediastinal or hilar mass or lymphadenopathy detected. Small hiatal hernia is present. Post CABG changes again demonstrated. Systemic vasculature: Severe scattered atherosclerotic changes again noted. Regional surrounding soft tissues: No acute process detected. Bones: No acute process detected. Included abdomen: Well-defined fluid attenuation lesions are again demonstrated within the imaged liver, most suggestive of simple cysts and simple appearing right renal cyst again noted, unchanged. Calcified gallstone again noted, unchanged. IMPRESSION: No evidence of a pulmonary embolus. Unchanged appearance of the chest by CT, with redemonstrated emphysema with bibasilar scarring, pleural plaques suggesting prior asbestos exposure, and small noncalcified pulmonary nodules. Left lower lung nodule again measures 7 mm in diameter and appears grossly unchanged dating back to June 13, 2007. Cholelithiasis. Electronically signed by: Hua Farmer MD 04/01/2020 4:16 PM [facility]
[2020-04-01 18:00] VITALS: BP 134/76; TEMP 97.5; O2SAT 97
== END 2020-04-01 17:55 | disposition home or self-care (01) ==
LOC: ER 14:28
DX: R00.2 Palpitations (principal); R00.0 Tachycardia, unspecified; K21.9 Gastro-esophageal reflux disease without esophagitis; I10 Essential (primary) hypertension; J44.9 Chronic obstructive pulmonary disease, unspecified; I25.10 Atherosclerotic heart disease of native coronary artery without angina pectoris; I48.91 Unspecified atrial fibrillation; I73.9 Peripheral vascular disease, unspecified; Z87.891 Personal history of nicotine dependence; Z95.1 Presence of aortocoronary bypass graft; Z79.01 Long term (current) use of anticoagulants; Z79.899 Other long term (current) drug therapy; Z95.820 Peripheral vascular angioplasty status with implants and grafts
CPT/HCPCS: 36415; 71045; 71275; 80053; 81001; 83605; 83735; 83880; 84443; 84484; 85025; 85379; 87502; 87635; 93005; J7030